=== PATIENT | male | born 1965 | race Asian ===

== ENCOUNTER 2016-11-24 13:20 | Day surgery (SDC) | payer BC ==
[~2016-11-24] VITALS: Ht 167.6 cm; Wt 66.1 kg
[~2016-11-24 13:20] MED LIST: HYDROCHLOROTHIAZIDE PO
[2016-11-24 15:13] VITALS: Ht 167.6 cm; Wt 66.1 kg
[2016-11-24 15:19] VITALS: BP 135/83; PULSE 71; RESP 18
[2016-11-24] MEDS ORDERED: PROPOFOL 20 ML ONE (15:53)
--- NOTE | 2016-11-24 16:17 | OPR ---
Date/Time of Note Date/Time of Note DATE: 11/24/16 TIME: 16:11 Operative Report Preoperative Diagnosis * Follow-up gastric ulcer Postoperative Diagnosis Impression: * Healed gastric ulcer * Residual antral gastritis. Rule out internal infection. Biopsies obtained * Mild distal esophagitis. * Small hiatal hernia. Plan: * Continue PPI therapy * Review pathology * Follow-up as previously scheduled . Operation/Procedure Performed * EGD with biopsies Surgeon: JOSE ROY MD Anesthesia: MAC Estimated Blood Loss: none Specimens * Gastric antrum and body Grafts/Implants * None Complications: None JOSE ROY MD Nov 24, 2016 16:17
[2016-11-24 16:33] VITALS: BP 112/71; PULSE 67; RESP 15
== END 2016-11-24 16:27 | disposition home or self-care (01) ==
LOC: GIL 13:20
PROVIDERS: ATTEND Internal Medicine Gastroenterology
DX: K29.30 Chronic superficial gastritis without bleeding (principal); K44.9 Diaphragmatic hernia without obstruction or gangrene; K20.8 Other esophagitis
CPT/HCPCS: 43239; 88305; 88312; Z7610